=== PATIENT | male | born 1955 | race Asian ===

== ENCOUNTER 2021-12-14 15:47 | Outpatient (CLI) | payer OTHER | END 2021-12-14 21:30 | disposition home or self-care (01) | LOC: RAD 15:47 | PROVIDERS: ATTEND Internal Medicine | DX: J40 Bronchitis, not specified as acute or chronic (principal) ==

== ENCOUNTER 2022-04-03 18:32 | Emergency (ER) | payer OTHER ==
[~2022-04-03] VITALS: Ht 190.5 cm; Wt 136.1 kg
[2022-04-03 19:30] LABS: PLATELET COUNT 282 K/uL (142-355)
[2022-04-03 19:34] LABS: POTASSIUM 4.3 mmol/L (3.6-5.2)
[2022-04-03 19:37] LABS: PARTIAL THROMBOPLASTIN TIME 31.4 SECONDS (24.5-33.6)
[2022-04-03 21:08] VITALS: BP 156/81; TEMP 98.2
== END 2022-04-03 21:08 | disposition home or self-care (01) ==
LOC: ED 18:32
PROVIDERS: Emergency Medicine
DX: I10 Essential (primary) hypertension (principal); Z87.898 Personal history of other specified conditions; R60.0 Localized edema; Z79.899 Other long term (current) drug therapy; Z51.81 Encounter for therapeutic drug level monitoring; F17.290 Nicotine dependence, other tobacco product, uncomplicated
CPT/HCPCS: 36415; 80053; 80162; 83880; 84484; 85027; 85610; 85730; 93005; 99284